=== PATIENT | male | born 1970 | race Caucasian/White ===

== ENCOUNTER 2018-12-08 09:44 | Observation (INO) | payer OTHER ==
[~2018-12-08] VITALS: Ht 185.4 cm; Wt 121.5 kg
[2018-12-08 10:37] LABS: HEMATOCRIT 36.2 % (42.0-52.0); HEMOGLOBIN 12.2 gm/dL (14.0-18.0); MCH 29.4 pg (26.0-34.0); MCHC 33.8 g/dL (28.0-37.0); RBC 4.16 mil/uL (4.50-6.00); RDW 13.8 % (10.5-14.5); WBC 6.2 thou/uL (4.0-11.0)
[2018-12-08 10:47] VITALS: BP 151/107
[2018-12-08 10:47] LABS: CALCIUM 8.8 mg/dL (8.5-10.1); CREATININE 0.9 mg/dL (0.7-1.3)
[2018-12-08 10:49] LABS: POTASSIUM 2.9 mmol/L (3.5-5.1)
[2018-12-08] MEDS ORDERED: AMLODIPINE BESY10 MG PO (10:57)
[2018-12-08] MEDS ORDERED: ASPIR 8181 MG PO (10:58)
[2018-12-08] MEDS ORDERED: PRINIVIL20 M1 PO (10:58)
[2018-12-08] MEDS ORDERED: PRAVACHOL20 MG PO (10:59)
[2018-12-08 12:12] LABS: CALCIUM 8.6 mg/dL (8.5-10.1); CREATININE 0.7 mg/dL (0.7-1.3)
--- NOTE | 2018-12-08 15:35 | NUR ---
Gave report to MAURO Grigsby in CCU. Pt being transported to room 213. BP 190/102. Called physican, recieved new orders. Spoke to Calista on new orders to be given for BP.
--- NOTE | 2018-12-08 16:40 | CATHLAB ---
[facility] [address] [place] [address] INVASIVE PROCEDURE REPORT Name: MYNOR MURRAY Room #: 213-P [facility]#: [id number] ������������� Admission: 12/08/18 ������������� Attend Phys: Kyler Guzman Discharge: ��� ������������� ��� Date of : 70 Date of Service: 12/08/18 [facility] �� Report #: [id number] �������� ��������������������������������������������[id number] THIS REPORT FOR: //name// APPROVED REPORT Study performed: 12/08/2018 10:05:51 Patient Details Patient Status: Out-Patient Room #: The patient is a 48 year-old male Event Personnel Kyler Garcia Collection Analyst, aCrmen Trotter RN, Anthony Billy, Penelope Arevalo RTR, COMPUTER NETWORKING INSTRUCTOR Monitor Procedures Performed Art Access - R femoral artery* Left Heart Cath w/or w/o Coronaries [id number] [facility] [address] [facility] w/wo Plasty Single RCA [id number] Initial Mod Sed Same Phys/QHP Gr5y 352417 07945 Mod Sed Same Phys/QHP Ea 934901 Hemostasis w/ Mynx, suprovisional conscious sedation Indication Chest pain Procedure Narrative The Right Groin^ was infiltrated with 1% Lidocaine subcutaneous anesthesia. A PINNACLE 4FR Sheath #[id number] sheath was inserted into the RFA^. Coronary angiography was performed using coronary diagnostic catheters. The right coronary system was accessed and visualized with a JR4 catheter. The left coronary system was accessed and visualized with a JL4 catheter. The left ventricle was accessed and visualized with a ANGLED PIGTAIL catheter. Left ventricular/Aortic Valve gradient assessed via catheter pullback. Closure device was deployed with a 6 Fr Mynx. The patient tolerated the procedure well and there were no complications associated with the procedure. Intraoperative Conscious Sedation Sedation start time: 12:50 Case end Time: 13:44 Versed 3 mg Fluoro Time: 14.00 minutes Dose: DAP 68149.00 cGycm2 2895 mGy [facility] [address] [place] [address] INVASIVE PROCEDURE REPORT Name: TREVORMYNOR GOODRICH Room #: 213-P [facility]#: [id number] ������������� Admission: 12/08/18 ������������� Attend Phys: Kyler Guzman Discharge: ��� ������������� ��� Date of : 70 Date of Service: 12/08/18 [facility] �� Report #: [id number] �������� ��������������������������������������������[id number] Contrast Type and Amount: Omnipaque 115 ml Coronary Angiography The patient's coronary anatomy is right dominant. Diagnostic Cath Left Main Normal origin and caliber bifurcates left into descending left circumflex. Free of significant high-grade obstructive lesion. There is a mild region of concentric narrowing in distal portion. LAD Multiple moderate caliber vessel which courses in the anterior interventricular sulcus giving rise to septal and diagonal branches. There is mild luminary irregularities noted with a more prominent proximal midportion eccentric 30-40% plaque. It then continues on without significant high-grade lesion as it tapers and terminates as a bifurcating vessel at the apex. Diagonal 1 Moderate caliber vessel without significant high-grade lesions noted but there is luminary irregularities. Does bifurcating his distal portion and terminating in the anterolateral wall Circumflex Moderate caliber vessel has a proximal 40-50% eccentric lesion. Then continues on giving rise to diminutive short first vaginal branch. It then continues and is a 90% lesion involving the origin of a second marginal and continues on involved in the high-grade lesion to a terminal third marginal branch that courses along the posterior lateral wall. Both of these vessels are small in caliber OM1 Small insignificant diminutive vessel OM2 Small caliber vessel with a high-grade ostial lesion as stated above OM3 Small caliber vessel with ostial lesion as stated above then continues along the lateral posterior wall with luminal irregularities Right Coronary Monitor large-caliber vessel which has a proximal 40-50% eccentric lesion. Then continues on in the midportion of the proximal RCA there is a high-grade eccentric lesion of 90-95%. The vessel reconstitutes continue posteriorly to the crux of the heart with a posterior descending artery originates. The distal RCA consists of a posterior wall circulation with luminary irregularities noted R PDA Small to diminutive size vessel without high-grade lesions is a 40-50% ostial lesion noted RPLV Small-caliber vessel without high-grade disease Left Ventriculography Left Ventriculography was not performed. [facility] [address] [place] [address] INVASIVE PROCEDURE REPORT Name: MYNOR MURRAY Room #: 213-P [facility]#: [id number] ������������� Admission: 12/08/18 ������������� Attend Phys: Kyler Guzman Discharge: ��� ������������� ��� Date of : 70 Date of Service: 12/08/18 1640 �� Report #: [id number] �������� ��������������������������������������������[id number] Hemodynamics The aortic pressure is 152/96 mmHg with a mean of 123 mmHg. The left ventricular pressure is 194/9 mmHg with a mean of mmHg. The left ventricular end diastolic pressure is 17 mmHg. PCI Technique Determination the right coronary vessel supplied a larger amount of myocardium that was likely culprit lesion the 4 Bhutanese system was upsized to permit intervention. A standard ChangeMobtronic JR 4 guide was engaged the coronary ostium. A 0.014 wire was advanced distally. It over the wire 3 mm x 30 mm DAVID stent was then advanced physician across the entire segment of disease including a high-grade focal point and subsequently dilated to 3.25 mm diameter. At this point time the balloon was removed and a 3.5 mm 6 mm length noncompliant balloon was positioned within the stent and fully expanding the stent to 3.6 mm diameter. No loss of side branch distal embolization occurred. No intimal disruption was noted. Flow was improved post procedure. Patient did have chest discomfort with balloon inflations but resolved subsequently. He tolerated procedure well and there were no complications following removal of the system per standard protocol. PCI Technique Lesion Percutaneous coronary intervention was performed on the mid right coronary artery. A 6FR JR4 LAUNCHER Guide Catheter was used to engage the ostium. A .014 LUGE J 182CM Interventional Guidewire was used to cross the lesion. STENT DEPLOYMENT A drug-eluting stent 3.0MM X 30MM RESOLUTE EMETERIO RX was inserted and inflated up to 12.00atm for 20seconds. Additional Inflation: 16.00atm for 12seconds. Additional Inflation: 20.00atm for 9seconds. POST STENT DEPLOYMENT BALLOON DILATION A Balloon catheter 3.5MM X 8MM NC EUPHORA RX was inserted and inflated up to 10.00atm for 16seconds. Additional Inflation: 22.00atm for 9seconds. Additional Inflation: 20.00atm for 10seconds. Additional Inflation: 20 jesus for 8 seconds Conclusion 1. Coronary artery disease severe two-vessel consisting of small second marginal and third marginal and a moderate to large caliber proximal RCA 2. Abnormal hemodynamics with elevated liver different diastolic pressure [facility] [address] [place] [address] INVASIVE PROCEDURE REPORT Name: TREVORMYNOR GOODRICH Room #: 213-P [facility].R.#: [id number] ������������� Admission: 12/08/18 ������������� Attend Phys: Kyler Guzman Discharge: ��� ������������� ��� Date of : 70 Date of Service: 12/08/18 1640 �� Report #: [id number] �������� ��������������������������������������������[id number] 3. Successful percutaneous revascularization with a Medtronic DAVID 3.0 x 30 mm stent dilated to 3.6 elevated I am Recommendations Cardiac Risk Reduction Program Medical Therapy Medications Administered Prasugrel ��������������������������������������������� <ELECTRONICALLY SIGNED> ���������������������������������������� By: Kyler Garcia MD ��������������������������������������������� 12/08/18 1640 1640 1640 Kyler Garcia MD /INF
[2018-12-08 18:34] VITALS: BP 150/99
[2018-12-08 19:22] VITALS: BP 140/83
[2018-12-08] MEDS ORDERED: COREG25 MG PO (21:44)
--- NOTE | 2018-12-09 03:33 | NUR ---
pt up in room adlib, r groin remains cdi, no c/o pain, vss, tollerating diet, hoping to go home today, will con;t to monitor per ppoc.
[2018-12-09 03:45] VITALS: BP 144/98
[2018-12-09 04:29] LABS: ALBUMIN 3.5 g/dL (3.4-5.0); CALCIUM 8.7 mg/dL (8.5-10.1); CREATININE 0.9 mg/dL (0.7-1.3); POTASSIUM 3.1 mmol/L (3.5-5.1); TOTAL BILIRUBIN 0.4 mg/dL (<0.1-1.0); TOTAL PROTEIN 7.4 g/dL (6.4-8.2)
[2018-12-09 04:46] LABS: HEMATOCRIT 36.3 % (42.0-52.0); HEMOGLOBIN 12.3 gm/dL (14.0-18.0); MCH 29.6 pg (26.0-34.0); MCHC 33.9 g/dL (28.0-37.0); MCV 87.4 fL (80.0-100.0); RBC 4.15 mil/uL (4.50-6.00); RDW 13.7 % (10.5-14.5); WBC 8.7 thou/uL (4.0-11.0)
[2018-12-09 08:04] VITALS: BP 148/110
--- NOTE | 2018-12-09 08:33 | EKG ---
[address] [place] [address] ELECTROCARDIOGRAM REPORT Name: MYNOR MURRAY Room #: 213-[facility] M.R.#: [id number] ������������������ Admission: 12/08/18 ������������������ Attend Phys: Kyler Garcia Discharge: ������������������ Date of : 70 Report #: [id number] ����������������������������������������������������������������� [id number] THIS REPORT FOR: //name// [facility] Test Date: 2018-12-08 Test Time: 10:18:13 Pat Name: MYNOR MURRAY Department: Room: 213 Gender: M Director Fraud: Mercy FERNANDEZ : 1970 Requested By: Kyler Garcia Order Number: [id number] MD: Ad De Paz Measurements Intervals [place] Rate: 67 P: 63 MA: 187 QRS: 19 QRSD: 99 T: 29 QT: 401 QTc: 424 Interpretive Statements Sinus rhythm Normal tracing No previous ECG available for comparison Electronically Signed On 12-09-2018 8:33:04 CDT by Ad De Paz [email or web address] ��������������������������������������������� <ELECTRONICALLY SIGNED> ���������������������������������������� By: Ad De Paz MD, [facility] ��������������������������������������������� 12/09/18 0833 1018 1018 Ad De Paz MD, FACC /EPI
[2018-12-09] MEDS ORDERED: CRESTOR40 MG PO (09:26)
[2018-12-09] MEDS ORDERED: EFFIENT10 MG PO (09:26)
[2018-12-09] MEDS ORDERED: NITROGLYCERIN0.4 MG SUBLING (09:31)
[2018-12-09 11:10] VITALS: BP 148/110
[2018-12-09 11:28] VITALS: BP 130/71
--- NOTE | 2018-12-09 14:51 | NUR ---
ASSESSMENT CHARTED. MEDS PER NOV - NO CO'S OF PAIN OR NAUSEA. STATED DISCOMFORT IN R GROIN AREA - UP AD CLAUDIO IN ROOM. ROCK DIET AND FLUIDS. -SEEN BY CARDIAC REHAB THIS AM - HOME AFTER LUNCH - INSTRUCTION RE HOME MEDS/ CARE AND FOLLOW UP GIVEN TO PATIENT - STATED UNDERSTANDING OF INSTRUCTION GIVEN. PT LEFT UNIT VIA WHEELCHAIR - HOME VIA PVT VEHICLE.
== END 2018-12-09 13:25 | disposition home or self-care (01) ==
LOC: CATH 09:44 → 2N 15:40 → CATH 15:41 → 2N 15:41 → ENTRNSPT 12-09 12:48 → EDTRNSPTSTS 12-09 12:50 → 2N 12-09 13:25
PROVIDERS: ADMIT Internal Medicine
DX: I25.110 Atherosclerotic heart disease of native coronary artery with unstable angina pectoris (principal)
CPT/HCPCS: 10081

== ENCOUNTER 2019-01-14 11:23 | Inpatient (IN) | payer OTHER ==
[2019-01-14] VITALS (12 sets, daily range): BP systolic 121–151; BP diastolic 64–95
[~2019-01-14] VITALS: Ht 180.3 cm; Wt 118.8 kg
[~2019-01-14 11:23] MED LIST: AMLODIPINE BESY10 MG PO; ASPIR 8181 MG PO; COREG25 MG PO; CRESTOR40 MG PO; EFFIENT10 MG PO; NITROGLYCERIN0.4 MG SUBLING; PRAVACHOL20 MG PO; PRINIVIL20 M1 PO
[2019-01-14 11:53] LABS: HEMATOCRIT 33.5 % (42.0-52.0); HEMOGLOBIN 11.4 gm/dL (14.0-18.0); MCH 29.4 pg (26.0-34.0); MCHC 34.1 g/dL (28.0-37.0); MCV 86.3 fL (80.0-100.0); RBC 3.88 mil/uL (4.50-6.00); RDW 13.3 % (10.5-14.5); WBC 6.3 thou/uL (4.0-11.0)
[2019-01-14] MEDS ORDERED: IMDUR 30 MG TAB30 M1 PO ×2 (12:09→12:47)
[2019-01-14] MEDS ORDERED: TRAZODONE HCL100 MG PO (12:14)
[2019-01-14] MEDS ORDERED: TOPROL XL25 MG PO ×2 (12:15→12:49)
[2019-01-14 12:23] LABS: CALCIUM 9.7 mg/dL (8.5-10.1); CREATININE 1.1 mg/dL (0.7-1.3); POTASSIUM 3.3 mmol/L (3.5-5.1)
[2019-01-14] MEDS ORDERED: CRESTOR40 MG PO (12:44)
[2019-01-14] MEDS ORDERED: IBUPROFEN 800800 M1 PO (12:44)
[2019-01-14] MEDS ORDERED: NITROGLYCERIN0.4 MG SUBLING (12:45)
[2019-01-14] MEDS ORDERED: EFFIENT10 MG PO (12:46)
[2019-01-14] MEDS ORDERED: COREG25 MG PO (12:46)
[2019-01-14] MEDS ORDERED: LISINOPRIL20 MG PO (12:47)
[2019-01-14] MEDS ORDERED: AMLODIPINE BESY10 MG PO (12:48)
[2019-01-14] MEDS ORDERED: ASPIR-LOW81 MG PO (12:50)
--- NOTE | 2019-01-14 18:14 | NUR ---
PT ADMITED FROM IR. ALERT AND ORIENTED. ADMISSION HX AND ASSESSMENT COMPLETED. VSS. RIGHT GROIN INCISION C/D/I. NO HEMATOMA NOTED. PT ORIENTED TO THE ROOM AND THE CALL LIGHT SYSTEM. NO CARDIAC DISTRESS NOTED. WILL CONTINUE TO MONITOR.
[2019-01-15] VITALS: BP 126/70
[2019-01-15 04:00] VITALS: BP 139/87
[2019-01-15 04:26] VITALS: BP 139/87
--- NOTE | 2019-01-15 04:36 | NUR ---
RECEIVED PT'S CARE AT 1905; PT. ON BED; RELATIVES AT THE BED SIDE DURING REPORT; DURING ASSESSMENT C/O LOWER BACK PAIN; REQUESTED HEATING PAD; NOT AVAILABLE; WARM TOWELS GIVEN; R. GROIN AREA DRY; INTACT; NO HEMATOMA; PULSES 2/2 THROUGH THE NIGHT; ABLE TO REST WITH EYES CLOSE AFTER MIDNIGHT; ASSESSMENT CHARGED; FOLLOWING POC; WILL KEEP MONITORING; WILL PASS ON REPORT.
[2019-01-15 05:43] LABS: HEMATOCRIT 32.9 % (42.0-52.0); HEMOGLOBIN 11.2 gm/dL (14.0-18.0); MCH 29.5 pg (26.0-34.0); MCV 86.6 fL (80.0-100.0); RBC 3.79 mil/uL (4.50-6.00); RDW 13.6 % (10.5-14.5); WBC 7.2 thou/uL (4.0-11.0)
[2019-01-15 05:54] LABS: CALCIUM 8.5 mg/dL (8.5-10.1); CREATININE 0.9 mg/dL (0.7-1.3); POTASSIUM 3.4 mmol/L (3.5-5.1)
[2019-01-15 07:50] VITALS: BP 160/103
--- NOTE | 2019-01-15 08:46 | EKG ---
[address] [address] ELECTROCARDIOGRAM REPORT Name: TREVORMYNOR GOODRICH Room #: 219-P [facility] M.R.#: [id number] ������������������ Admission: 01/14/19 ������������������ Attend Phys: Kyler Garcia Discharge: ������������������ Date of : 70 Report #: [id number] ����������������������������������������������������������������� [id number] THIS REPORT FOR: //name// [facility] Test Date: 2019-01-15 Test Time: 07:45:12 Pat Name: MYNOR MURRAY Department: Room: 219 P Gender: M Agency Manager: JER : 1970 Requested By: Shruthi Ruffin Order Number: [id number] MD: Niles Horn Measurements Intervals [place] Rate: 63 P: 56 DE: 177 QRS: -12 QRSD: 95 T: 10 QT: 418 QTc: 428 Interpretive Statements Sinus rhythm ST elev, probable normal early repol pattern Compared to ECG 12/08/2018 10:18:13 ST (T wave) deviation now present Electronically Signed On 01-15-2019 8:46:09 CDT by Niles Horn [email or web address] ��������������������������������������������� <ELECTRONICALLY SIGNED> ���������������������������������������� By: Niles Horn MD ��������������������������������������������� 01/15/19 0846 0745 0745 Niles Horn MD /[facility]
[2019-01-15 09:23] VITALS: BP 142/85
[2019-01-15 09:44] VITALS: BP 142/85
--- NOTE | 2019-01-15 10:33 | NUR ---
ASSESSMENT CHARTED. PT ALERT AND ORIENTED. DENIED HAVING PAIN OR DISCOMFORT. RIGHT GROIN INCISION C/D/I. NO HEMATOMA NOTED. SEEN BY DR. FINNEGAN ORDERS GIVEN TO DISCHARGE PT TO HOME. DISCHARGE INSTRUCTIONS GIVEN TO PT. PT VERBERLIZE UNDERSTANDING.
--- NOTE | 2019-01-18 11:20 | CATHLAB ---
[facility] [address] [place] [address] INVASIVE PROCEDURE REPORT Name: MYNOR MURRAY Room #: 219-P [facility] ..#: [id number] ������������� Admission: 01/14/19 ������������� Attend Phys: Kyler Guzman Discharge: ��� 01/15/19 ������������� ��� Date of : 70 Date of Service: 01/18/19 1120 �� Report #: [id number] �������� ��������������������������������������������[id number] THIS REPORT FOR: //name// APPROVED REPORT Study performed: 01/14/2019 12:43:00 Patient Details The patient is a 48 year-old male Event Personnel Kyler Garcia Glass Technician, , [place] RN, Penelope Arevalo RTR, PENELOPE Zepeda, Мария Snell Monitor Procedures Performed Coronary Angiography Only [id number] [facility] w/wo Plasty Single CIRC 596045 supervision of conscious sedation Indication Chest pain Procedure Narrative The Right Groin^ was infiltrated with 1% Lidocaine subcutaneous anesthesia. A PINNACLE 6FR Sheath #[id number] sheath was inserted into the RFA^. Coronary angiography was performed using coronary diagnostic catheters. The right coronary system was accessed and visualized with a JR4 catheter. The left coronary system was accessed and visualized with a LAUNCHER 6FR JL4 #[id number] catheter. Closure device was deployed with a Fr MYNXGRIP 6/7F #[id number]. The patient tolerated the procedure well and there were no complications associated with the procedure. Intraoperative Conscious Sedation Sedation start time: 1245 Case end Time: 1405 Versed 4 mg Fluoro Time: 24.09 minutes Dose: DAP 37831.00 cGycm2 Contrast Type and Amount: Omnipaque 210 ml Coronary Angiography The patient's coronary anatomy is right dominant. [facility] [address] [place] [address] INVASIVE PROCEDURE REPORT Name: MYNOR MURRAY GOODRICH Room #: 219-P [facility] ..#: [id number] ������������� Admission: 01/14/19 ������������� Attend Phys: Kyler Guzman Discharge: ��� 01/15/19 ������������� ��� Date of : 70 Date of Service: 01/18/19 1120 �� Report #: [id number] �������� ��������������������������������������������[id number] Diagnostic Cath Left Main Large caliber vessel normal origin and has a proximal 20% narrowing present continues on giving rise to left anterior descending left circumflex free of high-grade disease LAD Moderate caliber type II vessel which courses in the anterior interventricular sulcus. He gives rise to diagonal branches and septal branches as it courses with luminal irregularities present. No high-grade obstructive lesions are noted Diagonal 1 Large-caliber vessel coursing on the anterolateral aspect of the left ventricle. It has luminal irregularities present and it bifurcates in its mid course to 2 moderate size vessels. These have luminal irregularities but no high-grade flow-limiting lesions. Circumflex Moderate caliber vessel has a mild proximal 30% irregularities at its ostium. Then continues on in its proximal third has a eccentric 99% stenosis involving the origin of a moderate to small caliber second marginal and the continuation of the circumflex OM. This is a bifurcating lesion where all 3 aspects of the Y his 95-99% stenosed VENTURA 1 flow noted past the vessel Right Coronary Caliber vessel of normal origin. Previously stented site is noted to be without significant issues here there is a moderate proximal lesion noted up. The vessel continues on to the crux of the heart where prior to that is a 50-60% concentric lesion which is not flow-limiting. Then continues on his posterior wall branch arteries of the AV node which is without high-grade lesions R PDA Small to moderate caliber vessel which has a proximal segment of 50% stenosis which is not flow-limiting. Continuous with the apex. Hemodynamics The aortic pressure is 148/84 mmHg with a mean of 113 mmHg. PCI Technique The patient was brought for specific [facility] vascular physician less circumflex system. Utilizing a standard Natty left guide which was in gaze with the left coronary ostium a 0.014 wire was advanced. The continue to advance into the small marginal branch and did not proceed distally into the larger lateral inferior wall portion of the circumflex. His numerous attempts and reshaping of the wire was performed. Subsequent to this a wire was then added for a juanis wire system and was unable to cross the proximal aspect of the lesion. The juanis wire was then removed. The overall 4 wire was then advanced into the small marginal branch and a 20 balloon was gently dilated to try and open the bifurcating lesion. This was successfully achieved then the wire was then advanced distally into the larger branch of the marginal vessel. Utilizing a 20 balloon this was inflated [facility] [address] [place] [address] INVASIVE PROCEDURE REPORT Name: MYNOR MURRAY Room #: 219-P [facility] M.R.#: [id number] ������������� Admission: 01/14/19 ������������� Attend Phys: Kyler Guzman Discharge: ��� 01/15/19 ������������� ��� Date of : 70 Date of Service: 01/18/19 1120 �� Report #: [id number] �������� ��������������������������������������������[id number] multiple times to provide enough flow for stenting. 2.5 x 18 mm DAVID stent was then positioned across the lesion and dilated to 16 jesus. The wire was then advanced and the side branch and the ostial portion of the small marginal branch was dilated successfully. Postprocedure the vessel is widely patent with no significant loss of side branch distal embolization or intraluminal thrombus noted. Patient tolerated procedure well and there were no complications. PCI Technique Lesion Percutaneous coronary intervention was performed on the mid circumflex artery segment. A LAUNCHER 6FR JL4 #[id number] Guide Catheter was used to engage the ostium. A Luge Wire .014 x 182CM #[id number] Interventional Guidewire was used to cross the lesion. BALLOON DILATION A Balloon catheter Sprinter OTW 2.5 x 12 #[id number] was inserted and inflated up to 8.00atm for 39seconds. Additional Inflation: 12.00atm for 200seconds. Additional Inflation: 14.00atm for 52seconds. STENT DEPLOYMENT A stent RESOLUTE EMETERIO OTW 2.5 X 18 #[id number] was inserted and inflated up to 12.00atm for 11seconds. Additional Inflation: 16.00atm for 11seconds. Conclusion 1. Coronary disease 2 vessel with high-grade circumflex 2. Successful percutaneous revascularization of the left circumflex coronary artery with a 2.5 mm x 8 mm Medtronic DAVID and aches stent to 16 jesus Recommendations Cardiac Risk Reduction Program Medical Therapy Medications Administered Prasugrel ��������������������������������������������� <ELECTRONICALLY SIGNED> ���������������������������������������� By: Kyler Garcia MD ��������������������������������������������� 01/18/19 1120 1120 1120 Kyler Garcia MD /[facility]
== END 2019-01-15 10:55 | disposition home or self-care (01) | DRG 247 ==
LOC: CATH 11:23 → 2N 14:48
PROVIDERS: Nurse Practitioner Gerontology; ADMIT Internal Medicine
PROC: 027034Z Dilation of Coronary Artery, One Artery with Drug-eluting Intraluminal Device, Percutaneous Approach (ICD-10-PCS; principal; 2019-01-14)
PROC: B2111ZZ Fluoroscopy of Multiple Coronary Arteries using Low Osmolar Contrast (ICD-10-PCS; principal; 2019-01-14)
PROC: 4A023N7 Measurement of Cardiac Sampling and Pressure, Left Heart, Percutaneous Approach (ICD-10-PCS; principal; 2019-01-14)
DX: I25.110 Atherosclerotic heart disease of native coronary artery with unstable angina pectoris (principal); F41.9 Anxiety disorder, unspecified; E78.5 Hyperlipidemia, unspecified; I10 Essential (primary) hypertension; Z79.82 Long term (current) use of aspirin; Z79.899 Other long term (current) drug therapy; Z88.8 Allergy status to other drugs, medicaments and biological substances
CPT/HCPCS: 10081